=== PATIENT | female | born 1985 | race Caucasian/White ===

== ENCOUNTER 2021-07-12 15:26 | Emergency (ER) | payer OTHER, SELFPAY ==
[2021-07-12 15:40] VITALS: BP 119/75; PULSE 114; RESP 18; TEMP 36.2; O2SAT 99
--- NOTE | 2021-07-12 15:48 | ED.SKABFB ---
HPI - Skin/Abscess/Foreign Bdy General Chief complaint: Skin/Abscess/Foreign Body Stated complaint: Skin Irritation Time Seen by Provider: 07/12/21 15:48 Source: patient Mode of arrival: ambulatory Limitations: no limitations History of Present Illness HPI narrative: 36-year-old female presented for complaint of rash to face. She states I have impetigo. Endorses having this in the past. She states over the last 2 months she has contacted a telehealth physician for the same, and has completed course of mupirocin followed by a course of cephalexin. She endorses short improvement but over the last few days it returned on her right lower lip and left jawline. Endorses moderate pain and Honey colored drainage. She has it covered with make-up today. Endorses picking at her face. She denies any other lesions to body. MD complaint: rash Related Data Home Medications Medication Instructions Recorded Confirmed buspirone 10 mg PO DAILY 07/12/21 07/12/21 fluoxetine 20 mg PO DAILY 07/12/21 07/12/21 quetiapine 300 mg PO DAILY 07/12/21 07/12/21 Allergies Allergy/AdvReac Type Severity Reaction Status Date / Time No Known Allergies Allergy Verified 07/12/21 15:50 Review of Systems Review of Systems: CONSTITUTIONAL: Denies body aches, fever, chills, or sweats. EYES: Denies visual changes, redness, or discharge. ENT: Denies rhinorrhea, congestion, sore throat, or otalgia. CARDIOVASCULAR: Denies chest pain, palpitations, or edema. RESPIRATORY: Denies cough or dyspnea. GASTROINTESTINAL: Denies abdominal pain, nausea, vomiting, or diarrhea. GENITOURINARY: Denies dysuria or hematuria. SKIN: Endorses rash, itching MUSCULOSKELETAL: Denies back pain, joint pain, or myalgia. NEUROLOGIC: Denies headache, numbness, tingling, or weakness. PSYCH: Denies depression or anxiety. PMFSH Comments At time of signature, I have reviewed and agree with nursing past medical, surgical, social and family history unless otherwise noted. Please see nursing chart for further information. There is no relevant family history pertinent to the presenting complaint Exam Narrative: GENERAL: Well-appearing, well-nourished, and in no acute distress. HEAD: Normocephalic, atraumatic. EYES: conjunctivae clear, and EOMI. ENT: Mucous membranes moist. Oropharynx without edema, erythema or lesions. NECK: Supple. No lymphadenopathy CHEST: Clear to auscultation. No respiratory distress. HEART: Regular rate and rhythm. SKIN: Warm, dry. Patches of erythematous crusted lesion to right lower lip approx 1cm diameter, minimal drainage c/w impetigo NEURO: Alert and oriented x3. PSYCH: Normal mood and affect Course Course Emergency Course: Patient is aware of diagnosis, understands and agrees to treatment plan. Anticipatory guidance given. Patient agrees to follow-up as directed and is aware of reasons to seek care at the emergency department. Portions of this record may have been created with voice recognition software Level of Care: Express Care Visit Vital Signs Vital signs: Vital Signs Temperature 97.1 F L 07/12/21 15:40 Pulse Rate 114 H 07/12/21 15:40 Respiratory Rate 18 07/12/21 15:40 Blood Pressure 119/75 07/12/21 15:40 Pulse Oximetry 99 07/12/21 15:40 Temperature 97.1 F L 07/12/21 15:40 Pulse Rate 114 H 07/12/21 15:40 Respiratory Rate 18 07/12/21 15:40 Blood Pressure 119/75 07/12/21 15:40 Pulse Oximetry 99 07/12/21 15:40 Reviewed MDM - Skin/Abscess/Foreign Bdy MDM Narrative Medical decision making narrative: Does not appear at this time to be erythema multiforme, bullous, SJS, TEN Patient looks well, nontoxic afebrile; appropriate for initial outpatient treatment; discussed the importance of follow-up and dermatology; patient agrees Instructed patient to go to nearest ER immediately for any worsening symptoms including but not limited to: fever, spreading rash, pain, sore throat, headache, dizziness, chest pain, tro
== END 2021-07-12 16:14 | disposition home or self-care (01) ==
PROVIDERS: Emergency Provider Nurse Practitioner Family
DX: L01.00 Impetigo, unspecified (principal); E72.12 Methylenetetrahydrofolate reductase deficiency; Z86.711 Personal history of pulmonary embolism; Z86.2 Personal history of diseases of the blood and blood-forming organs and certain disorders involving the immune mechanism
CPT/HCPCS: 99213; G0463

== ENCOUNTER 2024-10-06 14:18 | Emergency (ER) | payer OTHER, SELFPAY ==
--- OUTSIDE RECORDS SUMMARY | 2024-10-06 14:20 | XMS_ITS | Clinical Summary ---
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 Gender Identity Not on file Sexual Orientation Not on file Plan of Treatment Health Maintenance Due Date Last Done Comments Hepatitis C Virus (HCV) Screening 1985 TdaP Immunization 1985 Hepatitis B Immunization (1 of 3 - 19+ 3-dose series) 01/27/2004 Pap Smear 2006 Human Papillomavirus (HPV) Immunization (1 - 3-dose SCDM series) 01/27/2012 Cervical Cancer Screening (CCS) 2015 HPV/Cotest 2015 SARS-COV-2 Immunization ( season) 2023 Influenza Immunization (#1) 10/28/202410/28, 12/25/2015, 11/27/2013 Respiratory Syncytial Virus (RSV) Immunization (Adult) (1 - 1-dose 75+ series) 01/27/2060 Meningococcal Immunization (ACWY) Aged Out No longer eligible b ased on patient's age to complete this topic Pneumococcal Immunization Combined Aged Out No longer eligible b ased on patient's age to complete this topic Rotavirus Immunization Aged Out No lo nger eligible based on patient's age to complete this topic
--- OUTSIDE RECORDS SUMMARY | 2024-10-06 14:20 | XMS_ITS | Clinical Summary ---
Author Organization [facility] Address [address] [place] [phone] Phone Care Team Providers Care Consulting Solution Director Name Role Phone Provider, Abstract Primary Care Provider Unavail able Allergies No known active allergies Medications busPIRone (BUSPAR) 10 mg tablet Take 10 mg by mouth 1 time daily as needed. Active FLUoxetine (PROzac) 20 mg capsule Take 20 mg by mouth daily. 3 06/07/2018 Active gabapentin (NEURONTIN) 300 mg capsule Take 300 mg by mouth 2 times daily. 5 05/08/2018 Active phentermine (ADIPEX P) 37.5 mg tablet Take 37.5 mg by mouth daily. 0 07/09/2018 Active ALPRAZolam (XANAX) 0.25 mg tablet Take 0.25 mg by mouth 1 time daily as needed. 1 06/20/2018 Active cephALEXin (KEFLEX) 500 mg capsule Take 500 mg by mouth 3 times daily. 0 07/09/2018 Active apixaban (Eliquis) 5 mg tabletIndication s:Acute saddle pulmonary embolism without acute cor pulmonale (CMS/HCC) Take 1 Tablet (5 mg) by mouth 2 times daily. 60 Tablet 03/07/2019 Active Active Problems Problem Noted Date Diagnosed Date Acute deep vein thrombosis ( DVT) of proximal vein of right lower extremity 08/14/2015 Acute hypoxemic respiratory failure 08/14/2015 Acute saddle pulmonary embolism 08/11/2015 Nicotine abuse 08/11/2015 Situational mixed anxiety and depressive disorde r 08/11/2015 Ankle fracture, right 08/11/2015 Acute saddle pulmonary embolism without acute co r pulmonale Acute saddle pulmonary embolism with acute cor p ulmonale Family History Medical History Relation Name Comments Heart Disease Father Relation Name Status Comments Father Alive Mother Sister 1 Alive Sister 2 Alive Sister 3 Alive Social History Tobacco Use Types Packs/Day Years Used Date Smoking Tobacco: Light Smoker Cigarettes Smokeless Tobacco: Never Comments:smokes about 1 cig every few weeks Alcohol Use Standard Drinks/Week Comments Yes 0 (1 standard drink = 0.6 oz pur e alcohol) EVERYDAY Comments No Sex and Gender Information Value Date Recorded Sex Assigned at Not on file Legal Sex Female 11:10 PM CDT Gender Identity Not on file Sexual Orientation Not on file Last Filed Vital Signs Vital Sign Reading Time Taken Comments Blood Pressure 125/92 07/13/2018 11:47 AM CDT Pulse 102 07/13/2018 11:47 AM CDT Temperature 36.8 C (98.2 F) 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 Respiratory Rate 13 08/16/2015 5:42 AM CDT Oxygen Saturation 98% 07/13/2018 11: 47 AM CDT Inhaled Oxygen Concentration - - Weight 93.8 kg (206 lb 14.4 oz) 019 11:47 AM CDT Height 172.7 cm (5' 8) 07/13/2018 11:4 7 AM CDT Body Mass Index 31.46 07/13/2018 11:47 AM CDT Plan of Treatment Health Maintenance Due Date Last Done Comments HPV VACCINES (1 - 3-dose series) 01/27/2000 HEPATITIS B VACCINES (1 of 3 - 19+ 3-dose series) 01/27/2004 HPV/Cotest (21-29) 2006 CERVICAL CANCER SCREENING 2015 HPV/Cotest (30-65) 2015 PAP SMEAR 2015 INFLUENZA VACCINE (#1) 2024 2, 11/08/2018, 11/15/2017, Additional history exists DTAP/TDAP/TD VACCINES (2 - T d or Tdap) 08/28/2031 08/27/2021 Insurance OPTIONS PPO [id number] Advance Directives For more information, please contact: [phone] * Full Code (Latest Code Status on File) Date Activated Date Inactivated Comments 08/12/2015 1:05 AM 08/16/2015 3:48 PM Care Teams Consulting Solution Director Relationship Specialty Start Date End Date Provider, Abstract NO ADDRESS ON FILE PCP - General 05/09/18
--- OUTSIDE RECORDS SUMMARY | 2024-10-06 14:20 | XMS_ITS | Clinical Summary ---
Author Organization [facility] Address [facility] [place] [address] Care Team Providers Care Group Sales Manager Name Role Phone Jose Weber MD Primary Care Provider [phone] Allergies Active Allergy Reactions Criticality Noted Date Comments Tape Redness Low 01/28/2021 Medications FLUoxetine 40 MG capsule Take 1 capsule (40 mg total) by mouth daily. 30 capsule 1 01/30/2021 Active famotidine 20 MG tablet Take 1 tablet (20 mg total) by mouth 2 (two) times daily. 60 tablet 01/29/2021 Active erythromycin (ROMYCIN) 5 MG/GM (0.5%) ophthalmic ointment Apply 1 cm ribbon in affected eye(s) up to 6x/day x7-10 days 3.5 g 09/11/2023 Active cetirizine (ZYRTEC) 10 MG tablet Take 1 tablet (10 mg total) by mouth daily. 20 tablet 09/11/2023 Active Active Problems Problem Noted Date Diagnosed Date Altered mental status 01/25/2021 Immunizations Immunization Administration Dates Next Due Fluzone 6 Months+ Quad (0.5 mL Prefilled Syringe) 01/29/2021(Deferred: Other),2021(Deferred: Other - Family unsure if patient would consent. Advised to hold until patient can consent for herself) Family History Medical History Relation Comments Alcohol Abuse Mother Drug Abuse Mother Relation Status Comments Mother Social History Tobacco Use Types Packs/Day Years Used Date Smoking Tobacco: Every Day Smokeless Tobacco: Current Alcohol Use Standard Drinks/Week Comments Yes 0 (1 standard drink = 0.6 oz pur e alcohol) Comments No Sex and Gender Information Value Date Recorded Sex Assigned at Not on file Legal Sex Female 8:27 PM CDT Gender Identity Not on file Sexual Orientation Not on file Last Filed Vital Signs Vital Sign Reading Time Taken Comments Blood Pressure 127/83 09/11/2023 2:38 PM CDT Pulse 100 09/11/2023 2:38 PM CDT Temperature 36.2 C (97.2 F) 09/11/2023 2:38 PM CDT Respiratory Rate 16 09/11/2023 2:38 PM CDT Oxygen Saturation 100% 09/11/2023 2:38 PM CDT Inhaled Oxygen Concentration - - Weight 99.8 kg (220 lb) 09/11/2023 2:38 PM CDT Height 172.7 cm (5' 8) 09/11/2023 2:38 PM CDT Body Mass Index 33.45 09/11/2023 2:38 PM CDT Plan of Treatment Health Maintenance Due Date Last Done Comments Cervical Cancer Screening Pa p Smear (Age 30 to 64) Every 3 Years 1985 Annual Physical 01/27/1988 Hepatitis C 2003 Hepatitis B Vaccines (1 of 3 - 19+ 3-dose series) 01/27/2004 Pneumococcal Vaccine: Pediat rics (0 to 5 Years) and At-Risk Patients (6 to 49 Years) (1 of 2 - PCV) 01/27/2004 HPV Vaccines (1 - 3-dose SCD M series) 01/27/2012 Cervical Cancer Screening Pa p with HPV Testing (Age 30 to 64) Every 5 Years 2015 Cervical Cancer Screening with HPV 2015 COVID-19 Vaccine (2023-2 5 season) 2023 DTaP, Tdap and Td Vaccines ( 2 - Td or Tdap) 08/28/2031 08/27/2021 Meningococcal B Vaccine Aged Out No l onger eligible based on patient's age to complete this topic Meningococcal Vaccine Aged Out No maxwell ankita eligible based on patient's age to complete this topic RSV Immunizations Under 20 Months Aged Out No longer eligible based on patient's age to complete this topic Goals Goal Patient Goal Type Associated Problems Recent Progress Patient-Stated? Author Health - patient able to perform ADLs independently General No Carlota Hough, RN Manage Stress, Depression, or Anxiety General No Viviana Kuo, HEALTHCARE NETWORK PRICING CONSULTANT Note: Patient will participate in plans for inpatient psychiatric placement. Insurance [employer] Advance Directives Documents on File Type Date Recorded Patient Infant Teacher Expl anation Advance Directives and Livin g Will 01/28/2021 11:07 AM POA Care Teams Group Sales Manager Relationship Specialty Start Date End Date Jose Weber MD PCP - General FAMILY PRACTICE 10/05/19
[2024-10-06 14:30] VITALS: BP 98/73; PULSE 87; RESP 18; TEMP 36.6; O2SAT 99
--- NOTE | 2024-10-06 14:34 | ED.EAR ---
HPI - Ear Problem General Chief complaint: Ear Stated complaint: LT Ear Pain Time Seen by Provider: 10/06/24 14:34 Source: patient Mode of arrival: ambulatory Limitations: no limitations History of Present Illness HPI Narrative: 39-year-old female presented for complaint of left ear pain and muffled hearing. Onset 3 days, pain started while using a Q-tip, stating she thinks she went too deep. Endorses pain and bleeding at the time. Says it improved briefly but today she noted swelling around the left ear with bloody drainage, and left-sided headache. Took naproxen. Denies dizziness, nausea, vomiting, fevers or chills. MD Complaint: ear pain Related Data Home Medications ?Medication ?Instructions ?Recorded ?Confirmed ?Last Taken ?Type buspirone 10 mg tablet 10 mg PO DAILY 07/12/21 07/12/21 Unknown History fluoxetine 20 mg capsule 20 mg PO DAILY 07/12/21 10/06/24 Unknown History quetiapine 300 mg tablet 300 mg PO DAILY 07/12/21 10/06/24 Unknown History atorvastatin 10 mg tablet mg 10/06/24 Unknown History fenofibrate 160 mg tablet mg 10/06/24 Unknown History omeprazole 40 mg capsule,delayed mg 10/06/24 Unknown History release ropinirole 0.5 mg tablet mg 10/06/24 Unknown History Allergies Allergy/AdvReac Type Severity Reaction Status Date / Time No Known Allergies Allergy Verified 10/06/24 14:29 Review of Systems Review of Systems: CONSTITUTIONAL: Denies malaise, chills, or fever. EYES: Denies visual changes, redness, or discharge. ENT: Denies rhinorrhea, congestion, sinus pain, and sore throat. Reports ear pain CARDIOVASCULAR: Denies chest pain, palpitations, or edema. RESPIRATORY: Denies cough or dyspnea. GASTROINTESTINAL: Denies abdominal pain, nausea, vomiting, diarrhea SKIN: Denies rash or itching. MUSCULOSKELETAL: Denies myalgia. NEUROLOGIC: Denies headache. All systems reviewed & are unremarkable except as noted in HPI and below PMFSH Comments At time of signature, agree with nursing past medical, surgical, social and family history. There is no relevant family history pertinent to the presenting complaint Exam Narrative: GENERAL: Appears in pain, in no acute distress. HEAD: Normocephalic EYES: PERRLA, conjunctivae clear ENT: Nares clear. Mucous membranes moist. Right TM normal. Left TM unable to fully visualize due to canal swelling. Canal is tender with serosanguineous drainage noted; suspect TM rupture. Left tragal and preauricular tenderness and mild swelling . Oropharynx not erythematous without lesions. NECK: Supple. No lymphadenopathy CHEST: Clear to auscultation, breath sounds equal. HEART: Regular rate and rhythm. SKIN: Warm, dry, no rash. NEURO: Alert and oriented x3. PSYCH: Normal mood and affect Course Course Emergency Course: Patient is aware of diagnosis, understands and agrees to treatment plan. Anticipatory guidance given. Patient agrees to follow-up as directed and is aware of reasons to seek care at the emergency department. Portions of this record may have been created with voice recognition software Level of Care: Express Care Visit Vital Signs Vital signs: Vital Signs Temperature 97.9 F 10/06/24 14:30 Pulse Rate 87 10/06/24 14:30 Respiratory Rate 18 10/06/24 14:30 Blood Pressure 98/73 L 10/06/24 14:30 Pulse Oximetry 99 10/06/24 14:30 Oxygen Delivery Room Air 10/06/24 14:30 Temperature 97.9 F 10/06/24 14:30 Pulse Rate 87 10/06/24 14:30 Respiratory Rate 18 10/06/24 14:30 Blood Pressure 98/73 L 10/06/24 14:30 Pulse Oximetry 99 10/06/24 14:30 Oxygen Delivery Room Air 10/06/24 14:30 Reviewed Medical Decision Making MDM Narrative Medical decision making narrative: Discussed physical exam findings and reviewed prescriptions. Advised supportive measures and signs/symptoms to go to the ER. Patient is appropriate for outpatient treatment and follow-up. Differential Diagnosis Differential Diagnosis: Coronavirus, strep pharyngitis, allergic rhinitis, upper respiratory tract infection, sinusitis, rhinosinusitis, nasopharyngitis, viral pharyngitis, otitis media, otitis externa, eustachian tube dysfunction, foreign body, cerumen impaction. Vital Signs Vital Signs: Vital Signs Temperature 97.9 F 10/06/24 14:30 Pulse Rate 87 10/06/24 14:30 Respiratory Rate 18 10/06/24 14:30 Blood Pressure 98/73 L 10/06/24 14:30 Pulse Oximetry 99 10/06/24 14:30 Oxygen Delivery Room Air 10/06/24 14:30 Temperature 97.9 F 10/06/24 14:30 Pulse Rate 87 10/06/24 14:30 Respiratory Rate 18 10/06/24 14:30 Blood Pressure 98/73 L 10/06/24 14:30 Pulse Oximetry 99 10/06/24 14:30 Oxygen Delivery Room Air 10/06/24 14:30 Discharge Plan Discharge Clinical Impression: Otitis externa Qualifiers: Otitis externa type: unspecified type Chronicity: acute Laterality: left Qualified Code(s): H60.502 - Unspecified acute noninfective otitis externa, left ear Patient Disposition: Home Condition: Stable Instructions: Antibiotic Form, Swimmer's Ear (ED), Ruptured Eardrum (ED) Additional Instructions: Take antibiotic drops as directed. Tylenol and ibuprofen every 8 hours as needed to reduce fever, pain Avoid water or anything into the ear Follow up with your personal physician and EN If your symptoms persist, change or worsen significantly, go to the emergency department for further evaluation. Patient Language: Greenlandic Prescriptions: New ciprofloxacin-dexamethasone 0.3-0.1 % drops,suspension 4 drp LEFT EAR Q12H 7 Days Qty: 7.5 0RF No Action quetiapine 300 mg tablet 300 mg PO DAILY buspirone 10 mg tablet 10 mg PO DAILY fluoxetine 20 mg capsule 20 mg PO DAILY mupirocin 2 % ointment 1 applic topical BID 14 Days Qty: 22 0RF doxycycline hyclate 100 mg tablet 100 mg PO BID 5 Days Qty: 10 0RF atorvastatin 10 mg tablet omeprazole 40 mg capsule,delayed release(DR/EC) ropinirole 0.5 mg tablet fenofibrate 160 mg tablet Follow-up/Referrals: Ash Parra MD [Physician] - Weber,MD Jose [Primary Care Provider] - Time of Disposition: 14:49
== END 2024-10-06 14:53 | disposition home or self-care (01) ==
PROVIDERS: Emergency Provider Nurse Practitioner Family; PCP Family Medicine
DX: H60.502 Unspecified acute noninfective otitis externa, left ear (principal); E78.00 Pure hypercholesterolemia, unspecified; Z86.711 Personal history of pulmonary embolism; K21.9 Gastro-esophageal reflux disease without esophagitis; E72.12 Methylenetetrahydrofolate reductase deficiency; F41.9 Anxiety disorder, unspecified; F32.A Depression, unspecified
CPT/HCPCS: 99213; G0463